=== PATIENT | female | born 1990 | race Caucasian/White ===

== ENCOUNTER 2020-09-09 09:19 | Inpatient (IN) | payer BC ==
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
[2020-09-09 09:48] LABS: #Eosinphils 0.1 thou/uL (0.0-0.7); #Lymphocytes 1.2 thou/uL (1.20-3.40); #Monocytes 0.6 thou/uL (0.11-0.59); #Neutrophils 13.5 thou/uL (1.40-6.50); %Basophils 0.1 % (0.0-1.0); %Eosinophils 0.5 % (0.0-10.0); %Lymphocytes 7.7 % (21.0-51.0); %Neutrophils 87.8 % (42.0-75.0); Hemoglobin 15.2 g/dL (12.0-16.0); Mean Corpuscular HGB CONC 34.3 g/dL (32.0-36.0); Mean Corpuscular Hemoglobin 32.7 pg (27.0-31.0); Mean Corpuscular Volume 95.4 fL (78.0-98.0); Mean Platelet Volume 8.2 fL (7.4-10.4); Platelet Count 207 thou/uL (130-400); RBC Distribution Width 10.7 % (11.5-14.5); Red Blood Cell (RBC) Count 4.66 mill/uL (4.20-5.40); White Blood Cell (WBC) Count 15.4 thou/uL (4.8-10.8)
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
[2020-09-09 09:56] LABS: BHCG - Serum Negative (NEGATIVE); Pregs Control Background? CLEAR/WHITE (CLR/WHITE); Pregs Control Bar Appear? YES (CONTROL BAR)
[2020-09-09 10:08] LABS: ALT (SGPT) 17 U/L (8-55); AST (SGOT) 21 U/L (5-34); Albumin 4.3 g/dL (3.5-5.0); Alkaline Phosphatase 56 U/L (40-110); Anion Gap 11 mmol/L (10-20); BUN (Urea Nitrogen) 15 mg/dL (7.0-18.7); Bilirubin, Total 0.4 mg/dL (0.2-1.2); Calc. Creatinine Clearance 0 mL/min (70-130); Calcium 8.7 mg/dL (7.8-10.44); Carbon Dioxide 25 mmol/L (22-29); Chloride 104 mmol/L (98-107); Globulin 2.3 g/dL (2.4-3.5); Glucose 111 mg/dL (70-105); Lipase 11 U/L (8-78); Potassium 4.4 mmol/L (3.5-5.1); Protein, Total 6.6 g/dL (6.0-8.3); Sodium 136 mmol/L (136-145)
[2020-09-09 10:14] LABS: PTT 28.5 sec (22.9-36.1); Prothrombin Time 13.5 sec (12.0-14.7)
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
[2020-09-09] MEDS ORDERED: Boostrix 0.5 ML (Tdap) VIAL ONE (10:27)
--- NOTE | 2020-09-09 10:37 | CT ---
CT CHEST WITH IV CONTRAST CT ABDOMEN WITH IV CONTRAST CT PELVIS WITH IV CONTRAST CORONAL AND SAGITTAL REFORMATIONS OF THORACOLUMBAR SPINE: FINDINGS: No mediastinal hematoma or intimal flap in the aorta is seen to suggest transection. No pleural or p ericardial effusions are seen. A tiny left anterior pneumothorax is noted. A tiny pneumatocele may be present in the posterior aspect of the superior segment of the upper lobe with adjacent dependent changes. There are fractures involving the lateral aspect of the left 5th rib and the neck of the le ft 6th rib. There are comminuted fractures of the left proximal humerus. The liver, spleen, pancreas, adrenal glands, and kidneys are intact. The gallbladder and urinary romi dder also appear intact. No free air or free fluid is seen in the abdomen or pelvis. Uterus and ova kyra are present. There is a right-sided adnexal cyst measuring 2.5 cm, likely ovarian. The small b owel loops are not abnormally dilated. A normal-appearing appendix is present. No fracture or subluxation is seen in the thoracolumbar spine. IMPRESSION: 1. Tiny left pneumothorax. 2. Fractures of the left 5th and 6th ribs and the left proximal humerus. 3. No CT evidence of solid organ injury. Discussed over the telephone with ER physician, Dr. Alvin Foy, at 10:06 a.m. CHARLES YOO
[2020-09-09] MEDS ORDERED: Morphine 4 MG/ML VIAL ONE (10:58)
[2020-09-09] MEDS ORDERED: Ondansetron PF 4 MG/2 ML Vial ONE (10:58)
[2020-09-09] MEDS ORDERED: Iopamidol-370 76% 500 ML 1 ML ONE (11:16)
[2020-09-09] MEDS ORDERED: Lidocaine 1% w/Epinephrine 1:100K 20 ML VIAL ONE (11:23)
[2020-09-09] MEDS ORDERED: Morphine 4 MG/ML VIAL SLOW IVP PRN (11:27)
[2020-09-09] MEDS ORDERED: Dextrose 5% in Water 1,000 ML IV PRN (11:27)
[2020-09-09] MEDS ORDERED: hydrALAZINE 20 MG/ML VIAL SLOW IVP PRN (11:27)
[2020-09-09] MEDS ORDERED: Dextrose 50% Abboject 50 ML SYRINGE SLOW IVP PRN (11:27)
[2020-09-09] MEDS ORDERED: Ondansetron PF 4 MG/2 ML Vial IVP PRN (11:27)
[2020-09-09] MEDS ORDERED: Cyclobenzaprine 10 MG TAB PO PRN (11:31)
[2020-09-09] MEDS ORDERED: traMADol HCl 50 MG TAB PO PRN (11:31)
[2020-09-09] MEDS ORDERED: Ketorolac Tromethamine 30 MG/ML VIAL ONE (11:50)
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
[2020-09-09] MEDS: Acetaminophen 500 MG TAB PO SCH ×3 (14:55→23:39)
[2020-09-09 14:56] VITALS: BMI 32.1
[2020-09-09] MEDS: Gabapentin 300 MG CAP PO SCH ×2 (15:25→21:20)
[2020-09-09] MEDS: Ibuprofen 600 MG TAB PO SCH ×2 (15:26→21:23)
[2020-09-09] MEDS ORDERED: Clindamycin/D5W 900 MG in Premix Bag 1 BAG IVPB SCH (15:30)
[2020-09-09 16:09] LABS: Amphetamine Detected (NotDetected); Barbiturates Screen Not Detected (NotDetected); Benzodiazepine Screen Not Detected (NotDetected); Cocaine Metabolite Screen Not Detected (NotDetected); Medtox Control Line Valid? VALID (VALID); Medtox Reader # READER 4; Methadone Not Detected (NotDetected); Methamphetamine Not Detected (NotDetected); Opiate Screen Detected (NotDetected); Oxycodone Screen Not Detected (NotDetected); Phencyclidine (PCP) Not Detected (NotDetected); THC/Cannabinoid Screen Not Detected (NotDetected); Tricyclic Screen Not Detected (NotDetected)
[2020-09-09] MEDS: traMADol HCl 50 MG TAB PO PRN (17:29)
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
[2020-09-09] MEDS ORDERED: Sodium Chloride 0.9% 1,000 ML IV SCH (19:00)
[2020-09-09] MEDS: Famotidine/PF 20 mg/2ml Vial SLOW IVP SCH (21:20)
[2020-09-09] MEDS: Senokot S 8.6-50 MG TAB PO SCH (21:22)
[2020-09-09] MEDS ORDERED: Lidocaine 1% w/Epinephrine 1:100K 20 ML VIAL FS SCH (22:45)
[2020-09-09 23:46] LABS: SARS-CoV-2 MS2 Positive; SARS-CoV-2 N Gene Negative; SARS-CoV-2 S Gene Negative; SARS-CoV-2 by NAA Not Detected (NotDetected); SARS-CoV-2 orf1ab Negative
[2020-09-10] MEDS ORDERED: Sodium Chloride 0.9% 1,000 ML IV SCH (00:01)
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
[2020-09-10] MEDS: Acetaminophen 500 MG TAB PO SCH ×4 (05:13→23:55)
[2020-09-10] MEDS: Ibuprofen 600 MG TAB PO SCH ×3 (05:15→22:24)
[2020-09-10] MEDS: traMADol HCl 50 MG TAB PO PRN (05:41)
[2020-09-10 06:59] LABS: #Lymphocytes 1.2 thou/uL (1.20-3.40); #Monocytes 0.6 thou/uL (0.11-0.59); #Neutrophils 5.3 thou/uL (1.40-6.50); %Basophils 0.2 % (0.0-1.0); %Eosinophils 0.5 % (0.0-10.0); %Lymphocytes 16.5 % (21.0-51.0); %Monocytes 8.6 % (0.0-10.0); %Neutrophils 74.2 % (42.0-75.0); Hemoglobin 10.7 g/dL (12.0-16.0); Mean Corpuscular HGB CONC 34.8 g/dL (32.0-36.0); Mean Corpuscular Hemoglobin 33.2 pg (27.0-31.0); Mean Corpuscular Volume 95.6 fL (78.0-98.0); Mean Platelet Volume 8.2 fL (7.4-10.4); Platelet Count 137 thou/uL (130-400); RBC Distribution Width 10.7 % (11.5-14.5); Red Blood Cell (RBC) Count 3.21 mill/uL (4.20-5.40); White Blood Cell (WBC) Count 7.2 thou/uL (4.8-10.8)
[2020-09-10 07:10] LABS: Chloride 106 mmol/L (98-107); Potassium 3.7 mmol/L (3.5-5.1); Sodium 136 mmol/L (136-145)
[2020-09-10 07:11] LABS: Calcium 7.6 mg/dL (7.8-10.44); Glucose 102 mg/dL (70-105)
[2020-09-10 07:13] LABS: Anion Gap 13 mmol/L (10-20); Carbon Dioxide 21 mmol/L (22-29)
[2020-09-10 07:14] LABS: Calc. Creatinine Clearance 169 mL/min (70-130); Phosphorus 2.8 mg/dL (2.3-4.7)
[2020-09-10 07:15] LABS: BUN (Urea Nitrogen) 9 mg/dL (7.0-18.7)
[2020-09-10 07:17] LABS: Magnesium 1.8 mg/dL (1.6-2.6)
[2020-09-10] MEDS ORDERED: Magnesium 2 GM/50 ML 2 GM in Premix Bag 1 BAG IVPB SCH (08:00)
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
[2020-09-10] MEDS ORDERED: Potassium Phosphate 15 MMOL, Magnesium Sulfate 2 GM in Sodium Chloride 0.9% 250 ML 250 ML IVPB SCH (08:30)
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
[2020-09-10] MEDS: Famotidine/PF 20 mg/2ml Vial SLOW IVP SCH ×2 (09:27→20:23)
[2020-09-10] MEDS: Gabapentin 300 MG CAP PO SCH ×3 (09:28→20:22)
[2020-09-10] MEDS: Senokot S 8.6-50 MG TAB PO SCH ×2 (09:28→20:23)
[2020-09-10] MEDS: Polyethylene Glycol 3350 17 GM Packet PO SCH (09:28)
[2020-09-10] MEDS ORDERED: Meperidine HCl/PF 25 MG/ML VIAL ONE (10:11)
[2020-09-10] MEDS ORDERED: Fentanyl 100 MCG/2 ML VIAL ONE ×2 (10:11→10:57)
[2020-09-10] MEDS ORDERED: Famotidine/PF 20 mg/2ml Vial ONE (10:11)
[2020-09-10] MEDS ORDERED: Ropivacaine 0.2% HCl/PF (40 MG/20 ML VIAL) ONE (10:26)
[2020-09-10] MEDS ORDERED: Dexamethasone 20 MG/5 ML VIAL ONE (10:26)
[2020-09-10] MEDS ORDERED: Lidocaine 1% PF 5 ML VIAL ONE (10:26)
[2020-09-10] MEDS ORDERED: Ondansetron PF 4 MG/2 ML Vial ONE (10:26)
[2020-09-10] MEDS ORDERED: ePHEDrine 50 MG/ML VIAL ONE (10:26)
[2020-09-10] MEDS ORDERED: Rocuronium Bromide 10 MG/ML (10ML VIAL) ONE (10:26)
[2020-09-10] MEDS ORDERED: Ropivacaine 0.5% HCl/PF (150 MG/30 ML VIAL) ONE (10:26)
[2020-09-10] MEDS ORDERED: Ketorolac Tromethamine 30 MG/ML VIAL ONE (10:26)
[2020-09-10] MEDS ORDERED: Metoclopramide HCl 10 MG/2 ML VIAL ONE (10:26)
[2020-09-10] MEDS ORDERED: PHENYLEPHRINE-NS 100 MCG/ML 10 ML SYRINGE ONE (10:26)
[2020-09-10] MEDS ORDERED: PROPOFOL 200 MG/20 ML VIAL ONE (10:26)
[2020-09-10] MEDS ORDERED: Clindamycin/D5W 900 mg/50 ml Premix Bag ONE (10:52)
[2020-09-10] MEDS ORDERED: Midazolam HCl 2 mg/2 ml Vial ONE (10:57)
[2020-09-10] MEDS ORDERED: Phenylephrine 10 MG/ML VIAL ONE (12:07)
[2020-09-10] MEDS ORDERED: Promethazine HCl 25 MG/ML VIAL IM PRN ×2 (12:33→12:45)
[2020-09-10] MEDS ORDERED: Ondansetron HCl/PF 4 MG/2 ML Vial IVP PRN (12:33)
[2020-09-10] MEDS ORDERED: Meperidine HCl/PF 25 MG/ML VIAL SLOW IVP PRN (12:33)
[2020-09-10] MEDS ORDERED: Promethazine HCl 25 MG/ML VIAL SLOW IVP PRN (12:33)
[2020-09-10] MEDS ORDERED: Fentanyl 100 MCG/2 ML VIAL IV PRN (12:44)
[2020-09-10] MEDS ORDERED: Ropivacaine 0.2% 550 ML 550 ML NERVE BLCK SCH (12:45)
[2020-09-10] MEDS ORDERED: Zolpidem Tartrate 5 MG TAB PO PRN (12:45)
[2020-09-10] MEDS ORDERED: Ondansetron PF 4 MG/2 ML Vial IVP PRN (12:45)
[2020-09-10] MEDS ORDERED: HYDROcodone/Acetaminophen 5/325 mg Tablet PO PRN ×2 (12:45)
[2020-09-10] MEDS ORDERED: traMADol HCl 50 MG TAB PO PRN ×2 (12:45)
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
--- NOTE | 2020-09-10 15:13 | RAD ---
Exam:Intraprocedure fluoroscopy HISTORY: Left humerus ORIF COMPARISON: None FINDINGS: 3 intraprocedure procedure note fluoroscopic views demonstrate internal fixation of left hu meral neck fracture Exposure: 187.4 seconds. 20.52 mCi. IMPRESSION: Intraoperative fluoroscopy as above.
[2020-09-10] MEDS ORDERED: Ketorolac Tromethamine 30 MG/ML VIAL IVP SCH (18:00)
[2020-09-10] MEDS ORDERED: Clindamycin/D5W 900 MG in Premix Bag 1 BAG IVPB SCH (23:59)
--- NOTE | 2020-09-11 00:27 | PRG ---
DATE OF SERVICE: 09/10/2020 SUBJECTIVE: Patient was seen during evening rounds on the surgical floor. The patient is awake, alert, in no distress. The patient is postop day zero status post refit repair of her left humerus fracture. The patient has a sling in place and Ice-Jose in place. The patient did receive a block, which has been controlling her pain. The patient is tolerating a diet. The patient voices no complaints or concerns at this time. OBJECTIVE: Vital signs are stable and she remains afebrile. PLAN: Continue supportive care and pain regimen. Physical and occupational therapy. Continue pulmonary toilet with the use of incentive spirometer every hour. The patient will likely be discharged home tomorrow. Job ID: [id number]
[2020-09-11] MEDS ORDERED: Clindamycin/D5W 900 MG in Premix Bag 1 BAG IVPB SCH ×2 (04:00→08:00)
[2020-09-11] MEDS: Ibuprofen 600 MG TAB PO SCH ×2 (05:16→14:00)
[2020-09-11] MEDS: Acetaminophen 500 MG TAB PO SCH ×2 (05:16→11:51)
[2020-09-11 07:14] LABS: Anion Gap 11 mmol/L (10-20); BUN (Urea Nitrogen) 6 mg/dL (7.0-18.7); Calc. Creatinine Clearance 193 mL/min (70-130); Calcium 7.6 mg/dL (7.8-10.44); Carbon Dioxide 23 mmol/L (22-29); Chloride 109 mmol/L (98-107); Glucose 98 mg/dL (70-105); Magnesium 2.3 mg/dL (1.6-2.6); Phosphorus 2.8 mg/dL (2.3-4.7); Potassium 3.9 mmol/L (3.5-5.1); Sodium 139 mmol/L (136-145)
[2020-09-11 07:42] LABS: #Monocytes 0.6 thou/uL (0.11-0.59); #Neutrophils 6.3 thou/uL (1.40-6.50); %Eosinophils 0.1 % (0.0-10.0); %Lymphocytes 12.7 % (21.0-51.0); %Monocytes 7.5 % (0.0-10.0); %Neutrophils 79.6 % (42.0-75.0); Hemoglobin 8.7 g/dL (12.0-16.0); Mean Corpuscular HGB CONC 34.2 g/dL (32.0-36.0); Mean Corpuscular Hemoglobin 32.4 pg (27.0-31.0); Mean Corpuscular Volume 94.9 fL (78.0-98.0); Platelet Count 119 thou/uL (130-400); Platelet Morphology Comment Appears Decreased; RBC Distribution Width 10.9 % (11.5-14.5); Red Blood Cell (RBC) Count 2.69 mill/uL (4.20-5.40); White Blood Cell (WBC) Count 7.9 thou/uL (4.8-10.8)
[2020-09-11] MEDS ORDERED: PHOS-NAK 1 PKT PACK PO SCH (08:45)
[2020-09-11] MEDS: Polyethylene Glycol 3350 17 GM Packet PO SCH (08:55)
[2020-09-11] MEDS: Gabapentin 300 MG CAP PO SCH (08:56)
[2020-09-11] MEDS: Senokot S 8.6-50 MG TAB PO SCH (08:56)
[2020-09-11] MEDS: Famotidine/PF 20 mg/2ml Vial SLOW IVP SCH (10:03)
[2020-09-11 11:39] VITALS: BP 104/69; TEMP 97.6
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
== END 2020-09-11 14:20 | disposition home or self-care (01) | DRG 493 ==
LOC: ERS 09:19 → ERHOLD 11:27 → SURG A 14:39
PROVIDERS: ADMIT Surgery; ATTEND Surgery
PROC: 0HQ0XZZ Repair Scalp Skin, External Approach (ICD-10-PCS; principal; 2020-09-09)
PROC: 0PSD04Z Reposition Left Humeral Head with Internal Fixation Device, Open Approach (ICD-10-PCS; 2020-09-10)
DX: S42.252A Displaced fracture of greater tuberosity of left humerus, initial encounter for closed fracture (principal); S27.0XXA Traumatic pneumothorax, initial encounter; S22.42XA Multiple fractures of ribs, left side, initial encounter for closed fracture; Z20.828 Contact with and (suspected) exposure to other viral communicable diseases; S01.01XA Laceration without foreign body of scalp, initial encounter; Z88.0 Allergy status to penicillin; V49.9XXA Car occupant (driver) (passenger) injured in unspecified traffic accident, initial encounter
CPT/HCPCS: 12032; 36415; 70450; 71045; 71260; 72125; 74177; 76000; 80048; 80053; 80306; 80307; 83605; 83690; 83735; 84100; 84703; 85025; 85610; 85730; 86850; 86900; 86901; 87635; 90471; 90715; 96365; 96375; A4306; C1713; G0390; J0690; J1100; J1885; J2175; J2250; J2270; J2370; J2405; J2704; J2765; J2795; J3010; J3475; J3490; J7050; Q9967; S0028; U0003